=== PATIENT | male | born 1985 | race Hispanic/Latino ===

== ENCOUNTER 2019-08-05 12:48 | Emergency (ER) | payer OTHER ==
[~2019-08-05] VITALS: Ht 172.7 cm; Wt 70.6 kg
--- NOTE | 2019-08-05 14:16 | REP ---
Clinical: pain. Technique: Internal rotation, external rotation, and Y view right shoulder. Findings: No acute fracture or dislocation. The acromioclavicular and glenohumeral joints are intact. No periarticular calcifications or degenerative changes are appreciated. Sub acromial space is normal. Surrounding soft tissues are unremarkable. Impression: Normal right shoulder radiographs. Electronically Signed by Buzz Warner MD 08/05/2019 02:08 P
[2019-08-05 14:44] VITALS: BP 123/71
== END 2019-08-05 14:52 | disposition home or self-care (01) ==
LOC: M ED 12:48
DX: S49.91XA Unspecified injury of right shoulder and upper arm, initial encounter (principal); X58.XXXA Exposure to other specified factors, initial encounter; Y92.89 Other specified places as the place of occurrence of the external cause; Y99.0 Civilian activity done for income or pay

== ENCOUNTER 2020-04-18 10:30 | Emergency (ER) | payer OTHER ==
[~2020-04-18] VITALS: Ht 185.4 cm; Wt 78.2 kg
[2020-04-18 12:08] LABS: BASO % 0.6 % (0.0-1.0); EOS # 0.6 10^3/uL (0.0-0.5); EOS % 10.1 % (0.0-3.0); HEMATOCRIT 43.1 % (42.0-52.0); LYMPH # 2.1 10^3/uL (1.5-5.0); MEAN CORPUSCULAR HEMOGLOBIN 28.1 pg (27.0-33.0); MEAN CORPUSCULAR HGB CONC 32.5 g/dl (32.0-36.5); MEAN CORPUSCULAR VOLUME 86.5 fl (80.0-96.0); MONO # 0.4 10^3/uL (0.0-0.8); NEUTROPHILS # 3.2 10^3/uL (1.5-8.5); NEUTROPHILS % 50.1 % (36.0-66.0); PLATELET COUNT, AUTOMATED 245 10^3/uL (150-450); RED BLOOD COUNT 4.98 10^6/uL (4.30-6.10); WHITE BLOOD COUNT 6.3 10^3/uL (4.0-10.0)
--- NOTE | 2020-04-18 12:13 | REP ---
INDICATION: right groin pain after running. COMPARISON: None. TECHNIQUE: AP and frogleg views. FINDINGS: Femoral head is smooth and rounded hip joint space is preserved. Head neck junction morphology shows a subtle bony convexity at the head neck junction superiorly. 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 Periarticular soft tissues are unremarkable. No fracture is seen. No periosteal reaction is noted. The visualized right hemipelvis and right sacrum are intact. IMPRESSION: Bony convexity at the head neck junction of the proximal femur may to be a feature of femoroacetabular impingement. No acute bony abnormality. Otherwise negative. <Electronically signed by Félix Pulido > 04/18/20 [id number]
[2020-04-18 12:18] LABS: APPEARANCE, URINE CLEAR (CLEAR); BACTERIA, URINE AUTO NEGATIVE (NEGATIVE); BILIRUBIN, URINE AUTO NEGATIVE (NEGATIVE); BLOOD, URINE BLOOD NEGATIVE (NEGATIVE); COLOR, URINE YELLOW (YELLOW); GLUCOSE, URINE (UA) AUTO NEGATIVE (NEGATIVE); KETONE, URINE AUTO NEGATIVE (NEGATIVE); LEUKOCYTE ESTERASE, URINE AUTO NEGATIVE (NEGATIVE); MUCUS, URINE SMALL (NEGATIVE); NITRITE, URINE AUTO NEGATIVE (NEGATIVE); PROTEIN, URINE AUTO NEGATIVE (NEGATIVE); RBC, URINE AUTO 1 /HPF (0-3); SPECIFIC GRAVITY URINE AUTO 1.024 (1.002-1.035); SQUAMOUS EPITHELIAL CELL UR AU 0 /HPF (0-6); UROBILINOGEN, URINE AUTO 0.2 mg/dL (0.0-2.0); WBC, URINE AUTO 1 /HPF (0-3)
[2020-04-18 12:23] LABS: BLOOD UREA NITROGEN 15 MG/DL (7-18); CARBON DIOXIDE LEVEL 31 MEQ/L (21-32); CHLORIDE LEVEL 107 MEQ/L (98-107); CREATININE FOR GFR 1.13 MG/DL (0.70-1.30); GLOMERULAR FILTRATION RATE > 60.0 (>60); GLUCOSE, FASTING 81 MG/DL (70-100); POTASSIUM SERUM 4.9 MEQ/L (3.5-5.1); SODIUM LEVEL 142 MEQ/L (136-145)
[2020-04-18 12:24] LABS: CALCIUM LEVEL 9.3 MG/DL (8.5-10.1)
[2020-04-18 13:47] VITALS: BP 141/72
--- NOTE | 2020-04-18 14:44 | REP ---
INDICATION: right groin pain, r/o inguinal hernia. Soft tissue ultrasound right inguinal region. COMPARISON: None. TECHNIQUE: Right inguinal soft tissue ultrasound is performed. FINDINGS: Scanning in the groin soft tissues on the right demonstrates multiple normal-appearing, normal-sized lymph nodes. The largest of these measures 1.4 x 0.7 x 0.9 cm. Fatty hilar architecture is preserved. No evidence of adenopathy. Upon Valsalva, hypoechoic fat can be seen coursing into the inguinal canal. This reduces upon rest or probe pressure. No abnormal fluid collection is seen. No bowel involvement is seen. IMPRESSION: Findings consistent with a small right inguinal hernia transmitted abdominal fat with Valsalva. Inguinal canal measures only 11 mm in anteroposterior dimension with Valsalva.. <Electronically signed by Félix Pulido > 04/18/20 [id number]
--- NOTE | 2020-04-19 08:05 | ED PDOC ---
Post-Departure Follow-Up ft jamey bains faxed formal report of right hip film for fu Fredrick Black MD Apr 19, 2020 08:05
== END 2020-04-18 13:48 | disposition home or self-care (01) ==
LOC: M ED 10:30
DX: S76.011A Strain of muscle, fascia and tendon of right hip, initial encounter (principal); X58.XXXA Exposure to other specified factors, initial encounter; Y92.89 Other specified places as the place of occurrence of the external cause

== ENCOUNTER 2020-10-29 17:51 | Emergency (ER) | payer OTHER ==
[~2020-10-29] VITALS: Ht 177.8 cm; Wt 72.7 kg
[2020-10-29] MEDS ORDERED: IBUP-1764 PO (17:58)
--- NOTE | 2020-10-29 20:38 | REPVR ---
PROCEDURE INFORMATION: Exam: XR Right Hip Exam date and time: 10/29/2020 8:15 PM Age: 34 years old Clinical indication: Hip pain; Right hip; Additional info: Injury TECHNIQUE: Imaging protocol: XR Right hip. Views: 2 or 3 views hip with pelvis when performed. COMPARISON: RI Hip, Ap,Lat 04/18/2020 11:47 AM FINDINGS: Bones/joints: Unremarkable. No acute fracture. Soft tissues: Unremarkable. IMPRESSION: No acute findings. Electronically signed by: Lenin Farrar On 10/29/2020 20:37:41 PM
[2020-10-29 22:02] VITALS: BP 121/75
== END 2020-10-29 22:04 | disposition home or self-care (01) ==
LOC: M ED 17:51
DX: S76.011A Strain of muscle, fascia and tendon of right hip, initial encounter (principal); X50.0XXA Overexertion from strenuous movement or load, initial encounter; Y92.009 Unspecified place in unspecified non-institutional (private) residence as the place of occurrence of the external cause; Y93.89 Activity, other specified; Y99.8 Other external cause status; M25.851 Other specified joint disorders, right hip; G89.29 Other chronic pain; Z80.1 Family history of malignant neoplasm of trachea, bronchus and lung

== ENCOUNTER 2020-11-13 11:19 | Emergency (ER) | payer OTHER ==
[~2020-11-13] VITALS: Ht 177.8 cm; Wt 78.4 kg
[~2020-11-13 11:19] MED LIST: IBUP-1764 PO
--- NOTE | 2020-11-13 11:52 | REP ---
INDICATION: TRAUMA, MEDEROS COMPARISON: None. TECHNIQUE: Axial noncontrast images from the skull base to the vertex with coronal reformations. This CT examination was performed using the following dose reduction techniques: Automated exposure control, adjustment of mA and/or kv according to the patient's size, and use of iterative reconstruction technique. FINDINGS: The ventricles, sulci, and cisterns are normal in position and appearance. Lugo-white differentiation is maintained. No acute intracranial hemorrhage, mass/mass effect, pathology or trauma/injury. No evidence for acute infarction. No extra-axial fluid collection. Calvarium is intact. Paranasal sinuses and mastoid air cells are clear. IMPRESSION: Normal noncontrast head CT. No evidence for acute intracranial pathology or trauma/injury. <Electronically signed by Buzz Warner > 11/13/20 [id number]
[2020-11-13] MEDS ORDERED: ACETAMINOPHEN 500 MG TAB PO ONE (12:55)
[2020-11-13] MEDS ORDERED: NEOSPORIN OINT 0.9 GM PKT TOP ONE (12:55)
[2020-11-13 13:14] VITALS: BP 121/66
== END 2020-11-13 13:38 | disposition home or self-care (01) ==
LOC: M ED 11:19
DX: S00.81XA Abrasion of other part of head, initial encounter (principal); S00.83XA Contusion of other part of head, initial encounter; S06.0X0A Concussion without loss of consciousness, initial encounter; W22.8XXA Striking against or struck by other objects, initial encounter; Y92.59 Other trade areas as the place of occurrence of the external cause; Y93.89 Activity, other specified; Y99.8 Other external cause status

== ENCOUNTER → 2021-02-14 | Outpatient (CLI) | payer OTHER ==
[~2021-02-14] MED LIST changes: +ISOVUE-300 61% 50ML VIAL As Ordered ONE; +LIDOCAINE 1% MDV 20ML VIAL As Ordered ONE; +TRIAMCINOLONE ACETONIDE SUSP 40 MG/ML VIAL (J3301) As Ordered ONE
--- NOTE | 2021-02-14 13:31 | REP ---
INDICATION: RT HIP PAIN W/ LIGAMENT SPRAIN. COMPARISON: None TECHNIQUE: The procedure was performed by SHAYNE Lin, under the direct supervision of Dr. Pulido. The benefits and risks of the procedure were explained to the patient, and an informed consent was obtained. Directly prior to the start of the procedure, a formal time-out was completed in the procedure room. The right femoral neck joint space was localized using fluoroscopic guidance. The skin was prepped and draped in a sterile fashion. Approximately 5 mL of 1% Lidocaine 10 mg/ml was used as a local anesthetic. Using fluoroscopic guidance, a #22 gauge spinal needle was inserted and advanced into the right femoral neck joint space. Approximately 1 mL of Isovue 300 was injected to verify placement. Ten mL of a solution containing 9 mL 1% lidocaine 10 mg/ml and 1 mL Kenalog 40 milligrams/milliliter was injected into the joint space. The needle was removed and hemostasis was achieved. FINDINGS: The patient tolerated the procedure well and there were no immediate complications. IMPRESSION: 1. Fluoroscopically guided right hip pain injection. 0.1 minutes of fluoroscopy time was utilized for this procedure. Some fluoroscopic images are performed with last image hold technology. These images require no additional radiation. <Electronically signed by Deborah Ambrosio > 02/14/21 [id number] <Electronically signed by Félix Pulido > 02/14/21 [id number]
== END ==
LOC: M RADPRO 09:10
PROVIDERS: ATTEND Physician Assistant Surgical
DX: M25.551 Pain in right hip (principal)
CPT/HCPCS: 20610; 77002; J3301; Q9967

== ENCOUNTER 2021-03-12 18:13 | Emergency (ER) | payer OTHER ==
[~2021-03-12] VITALS: Ht 177.8 cm; Wt 72.7 kg
[~2021-03-12 18:13] MED LIST changes: -ISOVUE-300 61% 50ML VIAL As Ordered ONE; -LIDOCAINE 1% MDV 20ML VIAL As Ordered ONE; -TRIAMCINOLONE ACETONIDE SUSP 40 MG/ML VIAL (J3301) As Ordered ONE
[2021-03-12] MEDS ORDERED: AMIT10TA7 PO (18:32)
[2021-03-12] MEDS ORDERED: SUMA50TA2 PO (18:32)
[2021-03-13] MEDS ORDERED: KETOROLAC 60MG 2ML VIAL IM ONE
--- NOTE | 2021-03-13 01:35 | REPVR ---
PROCEDURE INFORMATION: Exam: US Pelvis Limited, Transabdominal, Soft tissue Exam date and time: 03/13/2021 12:43 AM Age: 35 years old Clinical indication: Pelvic pain; Prior surgery; Surgery date: 6+ months; Additional info: Right inguinal tenderness, eval for recurrent hernia TECHNIQUE: Imaging protocol: Real-time transabdominal pelvic ultrasound with image documentation. Limited exam. Exam focused on the soft tissue. COMPARISON: Pelvis, limited US 04/18/2020 12:29 PM FINDINGS: Soft tissues: Fibrofatty soft tissue is noted in the right inguinal canal. This does not change significantly during Valsalva. The technologist reports bowel was present, but roofing sales representative images of bowel were not obtained. Other findings: Technologist reports technically difficult/limited exam. IMPRESSION: Possible fat containing right inguinal hernia without significant change during Valsalva. CT follow-up is recommended. Electronically signed by: Hans Hart On 03/13/2021 01:34:52 AM
[2021-03-13] MEDS ORDERED: NAPR-837 PO (01:53)
[2021-03-13 02:05] VITALS: BP 128/66
--- NOTE | 2021-03-13 12:14 | ED PDOC ---
Post-Departure Follow-Up pelvic us faxed to javan bains for fu Fredrick Black MD Mar 13, 2021 12:14
== END 2021-03-13 02:10 | disposition home or self-care (01) ==
LOC: M ED 18:13
DX: R10.2 Pelvic and perineal pain (principal)
CPT/HCPCS: 76857; 96372; 99283; J1885

== ENCOUNTER → 2021-09-08 | Outpatient (REF) ==
[~2021-09-08] MED LIST changes: +AMIT10TA7 PO; +NAPR-837 PO; +SUMA50TA2 PO
== END ==
LOC: M PLAIMG 10:14
PROVIDERS: ATTEND Internal Medicine
DX: R06.02 Shortness of breath (principal); M25.579 Pain in unspecified ankle and joints of unspecified foot